=== PATIENT | female | born 1990 | race African-American/Black ===

== ENCOUNTER 2020-09-07 16:47 | Emergency (ER) | payer SELFPAY ==
[2020-09-07 17:22] LABS: Bilirubin Negative (Negative); Blood, Urine Negative (Negative); Clarity Clear (Clear); Glucose, Urine (Dipstick) Normal (Negative); Ketone, Urine Negative (Negative); Leukocyte Negative Leu/uL (Negative); Nitrite Negative (Negative); Protein, Urine (Dipstick) Negative (Neg-Trace); Specific Gravity, Urine 1.028 (1.002-1.036); Urobilinogen Normal mg/dL (Less than 2)
== END 2020-09-07 18:51 | disposition home or self-care (01) ==
LOC: ERS 16:47
DX: R30.0 Dysuria (principal); N89.8 Other specified noninflammatory disorders of vagina
CPT/HCPCS: 81003; 99283

== ENCOUNTER 2020-09-08 09:53 | Emergency (ER) | payer SELFPAY ==
[2020-09-08 10:56] LABS: Pregnancy Test - Urine (BHCG) Negative (Negative); Pregu Control Background? CLEAR/WHITE (CLR/WHITE); Pregu Control Bar Appear? YES (CONTROL BAR)
[2020-09-08 10:57] LABS: Specific Gravity 1.026 (1.002-1.036)
[2020-09-08] MEDS ORDERED: cefTRIAXone\\ROCEPHIN 500 MG VIAL ONE (11:54)
[2020-09-08] MEDS ORDERED: Azithromycin 250 MG TAB ONE (11:54)
[2020-09-08] MEDS ORDERED: Lidocaine 1% PF 5 ML VIAL ONE (11:55)
[2020-09-11 21:20] LABS: Chlamydia by PCR Not Detected (NotDetected); GC by PCR Not Detected (NotDetected)
== END 2020-09-08 13:08 | disposition home or self-care (01) ==
LOC: ERS 09:53
DX: N93.9 Abnormal uterine and vaginal bleeding, unspecified (principal)
CPT/HCPCS: 81025; 87480; 87491; 87510; 87591; 87660; 96372; 99283; J0696